=== PATIENT | male | born 1980 | race Caucasian/White ===

== ENCOUNTER 2016-10-08 20:58 | Emergency (ER) | payer SELFPAY ==
[~2016-10-08] VITALS: Ht 188 cm; Wt 75.0 kg
[2016-10-08 22:57] LABS: BASOPHILS % 0.4 % (0.0-2.0); EOSINOPHILS % 0.2 % (0.0-5.0); LYMPHOCYTES % 8.7 % (20.0-50.0); MEAN CORPUSCULAR HEMOGLOBIN 31.7 pg (28.0-32.0); MEAN CORPUSCULAR VOLUME 90.9 fL (80.0-94.0); MEAN PLATELET VOLUME 7.4 fl (7.4-10.4); MONOCYTES % 4.4 % (2.0-8.0); NEUTROPHILS % 86.3 % (40.0-76.0); PLATELET 282 x1000/uL (130-400); RED BLOOD CELL COUNT 4.73 mill/uL (4.7-6.1); RED CELL DISTRIBUTION WIDTH 13.5 % (11.6-14.6)
[2016-10-08 23:06] LABS: CARBON DIOXIDE 29 mEq/L (21-32); CHLORIDE 108 mEq/L (98-107); ETHANOL BLOOD 253 mg/dL
[2016-10-09] MEDS ORDERED: IBUPROFEN 600MG TABLET PO ONE (00:30)
[2016-10-09 00:46] VITALS: BP 135/84
== END 2016-10-09 00:45 | disposition home or self-care (01) ==
LOC: ER 21:41
DX: T51.0X1A Toxic effect of ethanol, accidental (unintentional), initial encounter (principal); F10.121 Alcohol abuse with intoxication delirium; Y90.8 Blood alcohol level of 240 mg/100 ml or more; Y92.89 Other specified places as the place of occurrence of the external cause
CPT/HCPCS: 36415; 80053; 85025; 99284; G0482